=== PATIENT | female | born 2000 | race Caucasian/White ===

== ENCOUNTER → 2019-09-30 09:14 | Outpatient (CLI) | payer BC, SELFPAY ==
[2019-09-30 09:54] LABS: Influenza A - CEPHEID Flu A NEGATIVE (NEGATIVE); Influenza B - CEPHEID Flu B NEGATIVE (NEGATIVE)
== END ==
PROVIDERS: PCP Registered Nurse; Visit Provider Nurse Practitioner
DX: R68.89 Other general symptoms and signs (principal); J02.9 Acute pharyngitis, unspecified
CPT/HCPCS: 87070; 87147; 87502

== ENCOUNTER → 2019-12-04 11:46 | Outpatient (CLI) | payer BC, SELFPAY ==
--- NOTE | 2019-12-04 11:48 | DI.RAD.S_ITS ---
PROCEDURE: XR FOOT RT MIN 3V INDICATIONS: Right foot pain TECHNIQUE: 3 views of the foot were acquired. COMPARISON: [facility], CR, XR ANKLE RT MIN 3V, 12/04/2019, 12:07. FINDINGS: Bones: No fractures or dislocations. No suspicious bony lesions. Soft tissues: No tibiotalar joint effusion. Achilles tendon appears normal. Soft tissue swelling over the lateral malleolus. IMPRESSION: Soft tissue swelling over the lateral malleolus, no fracture found. Dictated by: Edward Griffin M.D. on 12/04/2019 at 12:40 Approved by: Edward Griffin M.D. on 12/04/2019 at 12:41
--- NOTE | 2019-12-04 11:48 | DI.RAD.S_ITS ---
PROCEDURE: XR ANKLE RT MIN 3V INDICATIONS: Right foot pain TECHNIQUE: 3 views of the ankle were acquired. COMPARISON: None. FINDINGS: Bones: No fractures or dislocations. Ankle mortise is normally aligned. No suspicious bony lesions. Soft tissues: No tibiotalar joint effusion. Achilles tendon appears normal. There is soft tissue swelling over the lateral malleolus. IMPRESSION: Soft tissue swelling over the lateral malleolus. No malalignment seen. Study extends cephalad into the middle third of the fibula and the fibular diaphysis through this area of imaging shows no sign of fracture or malalignment. Findings discussed with the physician caring for the patient. Dictated by: Edward Griffin M.D. on 12/04/2019 at 12:41 Approved by: Edward Griffin M.D. on 12/04/2019 at 12:43
== END ==
PROVIDERS: PCP Registered Nurse; Referring Provider Family Medicine; Visit Provider Family Medicine
DX: S99.921A Unspecified injury of right foot, initial encounter (principal); M79.671 Pain in right foot; M79.89 Other specified soft tissue disorders; X58.XXXA Exposure to other specified factors, initial encounter
CPT/HCPCS: 73610; 73630

== ENCOUNTER → 2019-12-18 10:01 | Outpatient (CLI) | payer BC, SELFPAY ==
--- NOTE | 2019-12-18 10:04 | DI.RAD.S_ITS ---
PROCEDURE: XR TIBIA FUBULA RT 2V INDICATIONS: Persistent localized pain mid shaft right fibula TECHNIQUE: 2 views of the tibia and fibula were acquired. COMPARISON: None. FINDINGS: Bones: No fractures or dislocations. No suspicious bony lesions. Soft tissues: No suspicious soft tissue calcifications or masses. IMPRESSION: No lesion found. Source of mid shaft tibial pain is not identified. Marrow space imaging could be obtained with MR scanning with contrast, if clinically warranted. Dictated by: Edward Griffin M.D. on 12/18/2019 at 11:25 Approved by: Edward Griffin M.D. on 12/18/2019 at 11:26
== END ==
PROVIDERS: PCP Registered Nurse; Referring Provider Family Medicine; Visit Provider Family Medicine
DX: M79.661 Pain in right lower leg (principal)
CPT/HCPCS: 73590

== ENCOUNTER → 2020-01-14 09:38 | Outpatient (CLI) | payer BC, SELFPAY ==
--- NOTE | 2020-01-14 09:41 | DI.MRI.S_ITS ---
PROCEDURE: MR ANKLE RT WO CON INDICATIONS: persistent lateral compartment right ankle pain TECHNIQUE: Noncontrast sagittal T1 spin echo and T2 fast spin echo with fat saturation, axial proton density fast spin echo and T2 fast spin echo with fat saturation, coronal T1 spin echo and T2 fast spin echo with fat saturation through the ankle/hindfoot. COMPARISON: None. FINDINGS: Image quality: Excellent. Bones and joints: Small to moderate amount of tibiotalar joint and subtalar joint effusion is seen. There is marrow edema involving medial malleolus, medial periphery of talus extending to talar dome and lateral periphery of distal tibia extending to tibial plafond. Marrow edema involving posterior lateral periphery of talus is also seen. No discrete fracture line is identified. Finding likely represent bony contusion in these areas. Mild edema is also noted along the periphery of distal lateral malleolus. Ankle soft tissue swelling and edema is also noted. Medial structures: The posterior tibialis, flexor digitorum longus, and flexor hallucis longus tendons are intact. The posterior tibial neurovascular bundle appears normal within the tarsal tunnel, without extrinsic mass effect. There is edema within superficial and deep portion of deltoid ligament suggestive of ligament sprain/low-grade intrasubstance partial thickness tear. Thickened with significant intrasubstance fluid signal suggestive of moderate grade sprain/partial thickness tear. The spring ligament components (superomedial calcaneonavicular, medioplantar oblique calcaneonavicular, and inferoplantar longitudinal ligaments) are intact. Lateral structures: The anterior talofibular, calcaneofibular, and posterior talofibular ligaments appear intact. More superiorly, the anterior and posterior tibiofibular ligaments appear intact, as is the intermalleolar ligament. The tibiofibular syndesmosis is normal in width at 2 mm or less. The peroneus longus and brevis tendons demonstrate normal location and morphology. Adjacent bony peroneal tubercle and retrotrochlear prominence are normal in size. The sinus tarsi demonstrates normal fatty signal, without edema, fibrosis, or cyst formation. Visualized sinus tarsi components (cervical ligament, interosseous talocalcaneal ligament, roots of the inferior extensor retinaculum) appear normal. The calcaneonavicular and calcaneocuboid components of the bifurcate ligament appear intact. The dorsal calcaneocuboid ligament appears intact. Anterior structures: The tibialis anterior, extensor hallucis longus, and extensor digitorum longus tendons appear intact. The dorsal talonavicular ligament appears intact. Posterior and plantar structures: Achilles tendon is intact. Medial and lateral bands of the plantar fascia are of normal thickness. No abductor digiti quinti muscle atrophy to suggest Wright neuropathy. IMPRESSION: 1. Moderate grade sprain/intrasubstance partial-thickness tear involving anterior and posterior talofibular ligaments and calcaneofibular ligament. Low to moderate grade sprain/intrasubstance partial-thickness tear involving deltoid ligament. 2. Ankle tendons are grossly intact. 3. Bony contusion involving medial malleolus, medial and lateral periphery of talar dome, lateral periphery of lateral malleolus as above. No fracture or dislocation. Small to moderate amount of joint effusion, no gross intra-articular loose body. Dictated by: Ra Sparks M.D. on 01/14/2020 at 16:11 Approved by: Ra Sparks M.D. on 01/14/2020 at 16:20
== END ==
PROVIDERS: PCP Family Medicine; Referring Provider Family Medicine; Visit Provider Family Medicine
DX: M25.571 Pain in right ankle and joints of right foot (principal); S93.491A Sprain of other ligament of right ankle, initial encounter; S93.421A Sprain of deltoid ligament of right ankle, initial encounter; S93.411A Sprain of calcaneofibular ligament of right ankle, initial encounter; M25.471 Effusion, right ankle
CPT/HCPCS: 73721

== ENCOUNTER 2020-07-23 23:12 | Observation (INO) | payer OTHER, SELFPAY ==
[2020-07-23 23:21] VITALS: BP 136/87; PULSE 109; RESP 26; TEMP 36.1; O2SAT 100; BMI 22.2
[2020-07-23 23:25] VITALS: PULSE 106; O2SAT 100
[2020-07-23 23:26] VITALS: BP 142/87; PULSE 104; O2SAT 100
[2020-07-23] MEDS: DEXTROSE 50 % IN WATER 25 GM/50 ML SYRINGE IV (23:27)
[2020-07-23 23:30] VITALS: PULSE 96; O2SAT 99
[2020-07-23 23:31] LABS: HCO3 VBG 20 mmol/L (23-28); Oxygen Saturation VBG 74 % (70-75); PCO2 VBG 34.1 mmHg (45-50); PO2 VBG 40 mmHg (35-45); Total CO2 VBG 21 mmol/L (24-29); pH VBG 7.38 (7.33-7.43)
[2020-07-23] MEDS: ONDANSETRON 4 MG/2 ML INJ IV (23:37)
--- NOTE | 2020-07-23 23:38 | ED.GENADULT ---
HPI - General Adult General Chief complaint: Diabetic Problem Stated complaint: Diabetic symptoms Time Seen by Provider: 07/23/20 23:21 Source: patient and family Mode of arrival: Wheelchair Limitations: no limitations History of Present Illness HPI narrative: Patient here with mother. Complains of nausea and vomiting with elevated blood sugar as well as low blood sugar. Started yesterday with nausea and blood glucose in the 600s. Unable to tolerate food. No changes in urination. Took her medicines as usual. No changes. However hypoglycemic on arrival. Is alert oriented. No altered mental status. No seizures. No recent illness otherwise no fever chills cough cold congestion no urinary complaints. No prior history of DKA or admission to the hospital for problems with her blood glucose. No prior Emergency Department visits for diabetes. Related Data Home Medications Medication Instructions Recorded Confirmed Humalog U-100 Insulin 0 unit SQ #3 ml 03/18/13 07/01/20 Lantus U-100 Insulin 0 unit SQ HS #10 ml 03/18/13 07/24/20 hydroxyzine pamoate 50 mg capsule 50 mg PO QID PRN 01/07/19 07/24/20 bupropion HCl 300 mg 24 hr tablet, 300 mg PO QAM 12/18/19 07/24/20 extended release lamotrigine 100 mg tablet 100 mg PO DAILY 12/18/19 07/24/20 prazosin 2 mg capsule 2 mg PO BEDTIME 12/18/19 07/24/20 sertraline 50 mg tablet 50 mg PO DAILY 12/18/19 07/24/20 cariprazine PO 07/01/20 07/01/20 clonidine HCl 0.2 mg tablet 0.2 mg PO BEDTIME 07/01/20 07/24/20 cariprazine [Vraylar] 1.5 mg 07/24/20 Previous Rx's Medication Instructions Recorded benzonatate 100 mg capsule 100 mg PO BID PRN #30 cap 06/19/20 Allergies Allergy/AdvReac Type Severity Reaction Status Date / Time No Known Drug Allergies Allergy Verified 07/23/20 23:24 Review of Systems Review of Systems Narrative: GENERAL: Denies chills, fatigue, malaise, fever, sweats. HEENT: Denies sinus pain, ear pain, sore throat, difficulty swallowing RESPIRATORY: Denies dyspnea, cough CARDIOVASCULAR: Denies chest pain, palpitations, edema, GASTROINTESTINAL: Complains of nausea, vomiting, denies abdominal pain, diarrhea, constipation, melena. : Denies dysuria, frequency, hematuria MUSCULOSKELETAL: denies muscle or bony pain SKIN: Denies rash, skin lesions NEUROLOGIC: Denies weakness, headache, numbness, change in speech, confusion PSYCHIATRIC: No SI or HI or hallucinations ROS Unobtainable: All systems reviewed & are unremarkable except as noted in HPI and below Patient History Medical History Acute bronchitis Contraceptive management Lower leg pain Postnasal drip Right ankle pain Second degree ankle sprain Social History household members: family Smoking Status: Never smoker alcohol intake: never substance use type: does not use and marijuana (1 dab pen per month (1g per month) ) Smoking Status: Never smoker Substance Use Type: marijuana Exam Narrative Exam Narrative: GENERAL: patient appears stated age. Well-nourished, well-developed patient, in no distress, not toxic not dyspneic HEAD: Normocephalic. EYES: Pupils equal round and reactive. No scleral icterus. No injection no discharge ENT: Mucous membranes moist. No drooling no tongue elevation no trismus no malocclusion NECK: Trachea midline. Non tender CARDIOVASCULAR: Regular rate and rhythm without murmurs, gallops, or rubs. RESPIRATORY: Clear to auscultation. Breath sounds equal bilaterally. No wheezes, rales, or rhonchi. GASTROINTESTINAL: Abdomen soft, non-tender, nondistended. EXTREMITIES: No gross deformities. BACK: Nontender without deformity or crepitance. No flank tenderness. NEURO: AOx4. SKIN: Warm and dry PSYCH: Not anxious, is cooperative Initial Vital Signs Initial Vital Signs: Vital Signs Temperature 96.9 F L 07/23/20 23:21 Pulse Rate 109 H 07/23/20 23:21 Respiratory Rate 26 H 07/23/20 23:21 Blood Pressure 136/87 07/23/20 23:21 Pulse Oximetry 100 07/23/20 23:21 Course Orders Ordered: ED Orders 07/23/20 23:20 Complete Blood Count AUTO DIFF Stat Comprehensive Metabolic Panel Stat Ketones (Beta-Hydroxybutyrate) Stat Lipase Stat Test Serum,Qual Stat 07/23/20 23:22 Venous Blood Gas Stat 07/23/20 23:47 COVID19 Stat Acetaminophen (Acetaminophen 325 Mg Tablet) 650 mg PO Q6HR PRN PRN Reason: Pain, Moderate (4-6) Bupropion HCl (Bupropion Xl 150 Mg Tab) 300 mg PO DAILY [facility] Dextrose (Dextrose 50 % In Water 25 Gm/50 Ml Syringe) 25 gm IV PRN PRN PRN Reason: Hypoglycemia Last Admin: 07/24/20 03:07 Dose: 25 gm Documented by: RANI Enoxaparin Sodium (Enoxaparin 40 Mg/0.4 Ml Syringe) 40 mg SUBCUT DAILY [facility] Dextrose/Sodium Chloride (Dextrose 5%-0.9% Ns) 1,000 mls @ 100 mls/hr IV CONT SHYANN Last Infusion: 07/24/20 01:25 Dose: 100 mls/hr Documented by: Admin: 07/24/20 01:07 Dose: 100 mls/hr Documented by: CECI Dextrose/Sodium Chloride (Dextrose 5%-0.9% Ns) 1,000 mls @ 84 mls/hr IV CONT SHYANN Last Admin: 07/24/20 02:43 Dose: 84 mls/hr Documented by: RANI Lamotrigine (Lamotrigine 100 Mg Tablet) 100 mg PO DAILY [facility] Naloxone HCl (Naloxone 0.4 Mg/Ml Vial) 0.2 mg IV Q2MIN PRN PRN Reason: Opiate Reversal Prazosin HCl (Prazosin 1 Mg Capsule) 2 mg PO BEDTIME [facility] Sertraline HCl (Sertraline 50 Mg Tablet) 50 mg PO DAILY [facility] Discontinued Medications Dextrose (Dextrose 50 % In Water 25 Gm/50 Ml Syringe) 25 gm IV NOW ONE Stop: 07/23/20 23:22 Last Admin: 07/23/20 23:27 Dose: 25 gm Documented by: CECI Dextrose (Dextrose 50 % In Water 25 Gm/50 Ml Syringe) 25 gm IV NOW ONE Stop: 07/24/20 00:30 Last Admin: 07/24/20 00:33 Dose: 25 gm Documented by: CECI Potassium Chloride 20 meq/ (Sodium Chloride) 260 mls @ 130 mls/hr IV NOW ONE Stop: 07/24/20 01:58 Last Infusion: 07/24/20 01:23 Dose: 130 mls/hr Documented by: SARAH Cosigned by: CECI Admin: 07/24/20 00:20 Dose: 130 mls/hr Documented by: CECI Cosigned by: SARAH Ondansetron HCl (Ondansetron 4 Mg/2 Ml Inj) 4 mg IV NOW ONE Stop: 07/23/20 23:33 Last Admin: 07/23/20 23:37 Dose: 4 mg Documented by: SARAH Reevaluation(s) Reevaluation #1: Patient still has hypoglycemia despite oral attempt as well as D50. What placed on glucose drip. Time: 00:42 Consultations Consultation #1: Spoke with hospitalist. Will admit Time: 00:42 Vital Signs Vital signs: Vital Signs - 8 hr 07/23/20 23:21 07/23/20 23:25 07/23/20 23:26 Temperature 96.9 F L Pulse Rate 109 H 106 H 104 H Respiratory Rate 26 H Blood Pressure 136/87 142/87 H Pulse Oximetry 100 100 100 07/23/20 23:30 07/24/20 00:00 07/24/20 00:05 Temperature Pulse Rate 96 H 88 97 H Respiratory Rate 21 Blood Pressure 127/75 Pulse Oximetry 99 99 100 07/24/20 00:30 Temperature Pulse Rate 122 H Respiratory Rate 23 Blood Pressure 131/81 Pulse Oximetry 99 Medical Decision Making Differential Diagnosis Differential Diagnosis: Hypoglycemia Lab Data Lab results reviewed: Yes I reviewed the patient's lab results. Result diagrams: 07/23/20 23:20 07/23/20 23:20 Labs: Lab Results 07/23/20 07/23/20 07/23/20 Range/Units 23:20 23:20 23:20 WBC 12.7 H (4.5-11.0) X10^3/uL RBC 5.07 (4.0-5.2) X10^6/uL Hgb 13.6 (12.0-16.0) g/dL Hct 41.8 (36-46) % MCV 82.5 (80-100) fL MCH 26.9 (26-34) PG MCHC 32.6 (30-36) % RDW 13.4 (11.6-14.8) % Plt Count 331 (150-400) X10^3/uL Neut % (Auto) 72.8 (50-75) % Lymph % (Auto) 20.8 L (25-40) % Cuming % (Auto) 4.5 (3-14) % Eos % (Auto) 1.3 L (2-4) % Baso % (Auto) 0.6 (0-2) % Neut # (Auto) 9200 H (6200-3421) /uL Lymph # (Auto) 2600 (5979-1419) /uL Cuming # (Auto) 600 (0-900) /uL Eos # (Auto) 200 (0-450) /uL Baso # (Auto) 100 (0-100) /uL VBG pH (7.33-7.43) VBG pCO2 (45-50) mmHg VBG pO2 (35-45) mmHg VBG HCO3 (23-28) mmol/L VBG Total CO2 (24-29) mmol/L VBG O2 Saturation (70-75) % VBG Base Excess (0-4) mmol/L Sodium 138 (137-145) mmol/L Potassium 2.3 L* (3.4-5.1) mmol/L Chloride 104 (98-107) mmol/L Carbon Dioxide 22 (22-32) mmol/L BUN 14 (7-17) mg/dL Creatinine 0.60 (0.52-1.04) mg/dL Estimated GFR > 60.0 (>60) mL/min BUN/Creatinine Ratio 23.3 H (6-22) Glucose 56 L (70-100) mg/dL Calcium 9.8 (8.4-10.2) mg/dL Total Bilirubin 0.3 (0.2-1.3) mg/dL AST 27 (14-36) IU/L ALT 25 (<35) IU/L Alkaline Phosphatase 81 (38-126) U/L Total Protein 7.9 (6.3-8.2) g/dL Albumin 4.6 (3.5-5.0) g/dL Globulin 3.3 (1.7-4.1) g/dL Albumin/Globulin Ratio 1.4 (1.0-2.8) Lipase 33 (23-300) U/L Serum , Qual Negative (Negative) Ketones 0.10 (<0.27) mmol/L COVID-19 PCR (Negative) 07/23/20 07/23/20 Range/Units 23:22 23:47 WBC (4.5-11.0) X10^3/uL RBC (4.0-5.2) X10^6/uL Hgb (12.0-16.0) g/dL Hct (36-46) % MCV (80-100) fL MCH (26-34) PG MCHC (30-36) % RDW (11.6-14.8) % Plt Count (150-400) X10^3/uL Neut % (Auto) (50-75) % Lymph % (Auto) (25-40) % Cuming % (Auto) (3-14) % Eos % (Auto) (2-4) % Baso % (Auto) (0-2) % Neut # (Auto) (4414-4963) /uL Lymph # (Auto) (2687-3681) /uL Cuming # (Auto) (0-900) /uL Eos # (Auto) (0-450) /uL Baso # (Auto) (0-100) /uL VBG pH 7.38 (7.33-7.43) VBG pCO2 34.1 L (45-50) mmHg VBG pO2 40 (35-45) mmHg VBG HCO3 20 L (23-28) mmol/L VBG Total CO2 21 L (24-29) mmol/L VBG O2 Saturation 74 (70-75) % VBG Base Excess -5.0 L (0-4) mmol/L Sodium (137-145) mmol/L Potassium (3.4-5.1) mmol/L Chloride (98-107) mmol/L Carbon Dioxide (22-32) mmol/L BUN (7-17) mg/dL Creatinine (0.52-1.04) mg/dL Estimated GFR (>60) mL/min BUN/Creatinine Ratio (6-22) Glucose (70-100) mg/dL Calcium (8.4-10.2) mg/dL Total Bilirubin (0.2-1.3) mg/dL AST (14-36) IU/L ALT (<35) IU/L Alkaline Phosphatase (38-126) U/L Total Protein (6.3-8.2) g/dL Albumin (3.5-5.0) g/dL Globulin (1.7-4.1) g/dL Albumin/Globulin Ratio (1.0-2.8) Lipase (23-300) U/L Serum , Qual (Negative) Ketones (<0.27) mmol/L COVID-19 PCR Negative (Negative) Point of Care Testing Glucose POC 126 Point of care testing: Point of Care Testing Glucose POC 126 MDM Narrative Medical decision making narrative: Appropriate for admission as maintaining hypoglycemia despite boluses dextrose Discharge Plan Departure Patient Disposition: Admitted as Observation Clinical Impression: Hypoglycemia Admit Date/Time: 07/24/20 00:56 Admit Provider: Kamini Molina
[2020-07-23 23:45] LABS: Add Manual Diff / Slide Review NO; Basophils Absolute Auto 100 /uL (0-100); Basophils Percent Auto 0.6 % (0-2); Eosinophils Absolute Auto 200 /uL (0-450); Eosinophils Percent Auto 1.3 % (2-4); Hematocrit 41.8 % (36-46); Hemoglobin 13.6 g/dL (12.0-16.0); Lymphocytes Absolute Auto 2600 /uL (1100-4500); Lymphocytes Percent Auto 20.8 % (25-40); Mean Corpuscular HGB Conc 32.6 % (30-36); Mean Corpuscular Hemoglobin 26.9 PG (26-34); Mean Corpuscular Volume 82.5 fL (80-100); Monocytes Absolute Auto 600 /uL (0-900); Monocytes Percent Auto 4.5 % (3-14); Neutrophils Absolute Auto 9200 /uL (1500-7000); Neutrophils Percent Auto 72.8 % (50-75); Platelet Count 331 X10^3/uL (150-400); Red Blood Cell Count 5.07 X10^6/uL (4.0-5.2); Red Cell Distribution Width 13.4 % (11.6-14.8); White Blood Cell Count 12.7 X10^3/uL (4.5-11.0)
[2020-07-23 23:50] LABS: Alanine Aminotransferase 25 IU/L (<35); Albumin 4.6 g/dL (3.5-5.0); Albumin Globulin Ratio 1.4 (1.0-2.8); Alkaline Phosphatase 81 U/L (38-126); Aspartate Aminotransferase 27 IU/L (14-36); BUN Creatinine Ratio 23.3 (6-22); Bilirubin Total 0.3 mg/dL (0.2-1.3); Blood Urea Nitrogen 14 mg/dL (7-17); Calcium 9.8 mg/dL (8.4-10.2); Carbon Dioxide 22 mmol/L (22-32); Chloride 104 mmol/L (98-107); Estimated Glomerular Filt Rate > 60.0 mL/min (>60); Globulin 3.3 g/dL (1.7-4.1); Glucose 56 mg/dL (70-100); HEMOLYSIS < 15 (0-50); Lipase 33 U/L (23-300); Sodium 138 mmol/L (137-145); Total Protein 7.9 g/dL (6.3-8.2)
[2020-07-23 23:56] LABS: Potassium 2.3 mmol/L (3.4-5.1)
[2020-07-24] VITALS (27 sets, daily range): BP systolic 96–146; BP diastolic 53–81; PULSE 68–122; RESP 16–23; TEMP 36.2–37.1; O2SAT 98–100; BMI 21.9
[2020-07-24 00:05] LABS: Pregnancy Test Serum,Qual Negative (Negative)
[2020-07-24 00:06] LABS: COVID19 -Nasal RAPID Negative (Negative)
[2020-07-24] MEDS: POTASSIUM CHLORIDE 20 MEQ in SODIUM CHLORIDE 0.9% 250 ML 130 ML IV (00:20)
[2020-07-24] MEDS: DEXTROSE 50 % IN WATER 25 GM/50 ML SYRINGE IV ×3 (00:33→05:07)
--- NOTE | 2020-07-24 00:33 | PC.NURSE ---
Patient reports personal glucose check of 45, checked on our glucometer 32. Verbal order from Dr Hutchinson for amp 25gm of dextrose. Patient diaphoretic and some nausea. Attempting to eat peanut butter and cracker with small sips of juice.
[2020-07-24] MEDS: DEXTROSE 5%-0.9% NS 1,000 ML 100 ML IV (01:07)
[2020-07-24] MEDS: DEXTROSE 5%-0.9% NS 1,000 ML 84 ML IV (02:43)
[2020-07-24] MEDS: hydrOXYzine pamoate 25 MG CAPSULE 50 MG PO (03:47)
[2020-07-24] MEDS: cloNIDine 0.1 MG TABLET 0.2 MG PO (03:47)
[2020-07-24] MEDS: lamoTRIgine 100 MG TABLET PO (03:48)
[2020-07-24] MEDS: SERTRALINE 50 MG TABLET PO (03:48)
--- NOTE | 2020-07-24 04:01 | PC.NURSE ---
0200 -late entry - Pt HR frequently upto 130-150s with short SVT runs again. Not resolving with vagal maneuver. Pt reports feeling palpitations. No complaints of chest pain. Paged Dr Rubin. TO to give another 25mg PO metoprolol. Pt now resting with HR running in the mid 50s. WCTM
--- NOTE | 2020-07-24 05:14 | PC.NURSE ---
Notified Jesse EASON of patient low blood sugar. Giving D50 now as ordered. TO to switch IV fluids to d10ns
--- NOTE | 2020-07-24 05:17 | PC.NURSE ---
Addendum entered by Natividad Moralez R.N. 07/24/20 07:02: d10w turned off per YUMI Anderson Original Note: Notified Jesse EASON of patient low blood sugar. Giving D50 now as ordered. TO to switch IV fluids to d10w. Pt reports shakiness and lightheadedness
[2020-07-24] MEDS: DEXTROSE 10 % IN WATER 1,000 ML 84 ML IV (05:19)
--- NOTE | 2020-07-24 06:17 | PM.HP.1 ---
History of Present Illness History of Present Illness Date Patient Seen: 07/24/20 Time Patient Seen: 01:38 Chief complaint: Diabetic symptoms Narrative: Patient presented to the ER with her mother complaining of nausea and vomiting with elevated blood sugar as well as low blood sugar. Yesterday the patient reports that she had nausea with blood glucose in the 600s and was unable to tolerate food. Patient reports that she has been cycling through high and low blood sugars some over 600 and as low as the 70s for the last 2 weeks, she often experiences racing heart and shaking hands and feels weak and and vomiting a couple times a week and then last 3 days she was unable to keep fluids down vomiting constantly. Patient denies recent illness, injury or changes in urination. She reports that she took her medicines as usual today, however she was hypoglycemic on arrival, though alert and oriented without an altered mental status. Patient denies seizures fever chills cough cold congestion or urinary complaints. Patient was diagnosed a type 1 insulin-dependent diabetic 7 years ago no prior history of DKA or admission to the hospital for problems with her blood glucose or other diabetes related issues. Patient has a history of generalized anxiety with panic attacks, depression and history of attempted suicide. Patient takes prazosin, Benzonate, bupropion,cariprazine, Lamictal, sertraline, clonidine, hydroxyzine, Lantus and Humalog. WBC 12.7 K 2.3 glucose 56, ketones negative, IV BGs: PCO2 31.4 bicarb 20, CO2 21, base excess -5.0. Patient received dextrose 25 mg x 2 in the emergency room and a 20 mEq K, 4 mg of Zofran blood sugar remained in the 50s, patient was then placed on a D5 normal saline drip, was stable but admitted for severe hypoglycemia. Patient History Medical History Acute bronchitis Contraceptive management Lower leg pain Postnasal drip Right ankle pain Second degree ankle sprain Family & Social History Family History (Updated 07/24/20 @ 07:05 by JHONATHAN Peña) Father Diabetes mellitus Unknown Diabetes mellitus Social History: household members family with mother & step father Prior Living Arrangements House Safety & Behavioral: Feels Safe in Current Yes Environment Been Physically Hurt or No Threatened By a Person Suicidal Ideation Description None Suicide Plan Description No Plan Tobacco & Substance use: Smoking Status Never smoker alcohol intake never Substance Use Type marijuana Meds Home Medications and Allergies Home Medications Medication Instructions Recorded Confirmed Type Humalog U-100 Insulin 0 unit SQ TIDWMEAL #3 ml 03/18/13 07/24/20 History Lantus U-100 Insulin 0 unit SQ HS #10 ml 03/18/13 07/24/20 History hydroxyzine pamoate 50 mg capsule 50 mg PO QID PRN 01/07/19 07/24/20 History bupropion HCl 300 mg 24 hr tablet, 300 mg PO QAM 12/18/19 07/24/20 History extended release lamotrigine 100 mg tablet 100 mg PO DAILY 12/18/19 07/24/20 History prazosin 2 mg capsule 2 mg PO BEDTIME 12/18/19 07/24/20 History sertraline 50 mg tablet 50 mg PO DAILY 12/18/19 07/24/20 History benzonatate 100 mg capsule 100 mg PO BID PRN #30 cap 06/19/20 07/24/20 Rx clonidine HCl 0.2 mg tablet 0.2 mg PO BEDTIME 07/01/20 07/24/20 History cariprazine [Vraylar] 1.5 mg PO DAILY 07/24/20 07/24/20 History Allergies Allergy/AdvReac Type Severity Reaction Status Date / Time No Known Drug Allergies Allergy Verified 07/23/20 23:24 Review of Systems Review of Systems ROS: Yes All systems reviewed with the patient and are negative except as otherwise documented Constitutional Constitutional: Reports system reviewed and no additional complaints, except as documented and Reports fatigue Eyes Eyes: Reports system reviewed and no additional complaints, except as documented ENT Ears, Nose, Mouth, and Throat: Yes system reviewed and no additional complaints, except as documented Cardiovascular Cardiovascular: Reports system reviewed and no additional complaints, except as documented Respiratory Respiratory: Reports system reviewed and no additional complaints, except as documented Gastrointestinal Gastrointestinal: Reports system reviewed and no additional complaints, except as documented Genitourinary Genitourinary: Reports system reviewed and no additional complaints, except as documented Musculoskeletal Musculoskeletal: Reports system reviewed and no additional complaints, except as documented Integumentary/Breasts Skin/Breast: Reports system reviewed and no additional complaints, except as documented Neurologic Neurologic: Reports system reviewed and no additional complaints, except as documented Psychiatric Psychiatric: Reports system reviewed and no additional complaints, except as documented Endocrine Endocrine: Reports system reviewed and no additional complaints, except as documented and Reports fatigue Hematologic/Lymphatic Hematologic/Lymphatic: Reports system reviewed and no additional complaints, except as documented Allergic/Immunologic Allergic/Immunologic: Reports system reviewed and no additional complaints, except as documented Exam Vital Signs (past 8 hours): - 07/23/20 23:21 07/23/20 23:25 07/23/20 23:26 Temperature 96.9 F L Pulse Rate 109 H 106 H 104 H Respiratory Rate 26 H Blood Pressure 136/87 142/87 H Pulse Oximetry 100 100 100 07/23/20 23:30 07/24/20 00:00 07/24/20 00:05 Temperature Pulse Rate 96 H 88 97 H Respiratory Rate 21 Blood Pressure 127/75 Pulse Oximetry 99 99 100 07/24/20 00:30 07/24/20 01:00 07/24/20 01:21 Temperature Pulse Rate 122 H 86 102 H Respiratory Rate 23 16 22 Blood Pressure 131/81 129/73 Pulse Oximetry 99 99 99 07/24/20 01:30 07/24/20 02:35 07/24/20 02:39 Temperature 98.0 F Pulse Rate 107 H 104 H Respiratory Rate 16 Blood Pressure 131/80 146/81 H Pulse Oximetry 100 100 07/24/20 03:00 07/24/20 03:30 07/24/20 03:47 Temperature Pulse Rate 101 H 92 H 102 H Respiratory Rate Blood Pressure 125/73 125/73 Pulse Oximetry 100 99 07/24/20 04:00 07/24/20 04:30 07/24/20 05:00 Temperature Pulse Rate 87 80 78 Respiratory Rate Blood Pressure 117/71 117/80 Pulse Oximetry 100 98 98 07/24/20 05:30 07/24/20 06:00 Temperature Pulse Rate 75 80 Respiratory Rate Blood Pressure 97/53 L Pulse Oximetry 100 100 Oxygen Delivery Method Room Air Oxygen Flow Rate 0 Narrative Exam Narrative: GENERAL: patient appears stated age. Well-nourished, well-developed patient, in no distress, not toxic not dyspneic HEAD: Normocephalic. EYES: Pupils equal round and reactive. No scleral icterus. No injection no discharge ENT: Mucous membranes moist. No drooling no tongue elevation no trismus no malocclusion NECK: Trachea midline. Non tender CARDIOVASCULAR: Regular rate and rhythm without murmurs, gallops, or rubs. RESPIRATORY: Clear to auscultation. Breath sounds equal bilaterally. No wheezes, rales, or rhonchi. GASTROINTESTINAL: Abdomen soft, non-tender, nondistended. EXTREMITIES: No gross deformities. BACK: Nontender without deformity or crepitance. No flank tenderness. NEURO: AOx4. SKIN: Warm and dry PSYCH: Not anxious, is cooperative Objective Labs Result Diagrams: 07/23/20 23:20 07/23/20 23:20 Labs: Laboratory Results - last 24 hr 07/23/20 07/23/20 07/23/20 23:20 23:20 23:20 WBC 12.7 H RBC 5.07 Hgb 13.6 Hct 41.8 MCV 82.5 MCH 26.9 MCHC 32.6 RDW 13.4 Plt Count 331 Neut % (Auto) 72.8 Lymph % (Auto) 20.8 L [place] % (Auto) 4.5 Eos % (Auto) 1.3 L Baso % (Auto) 0.6 Neut # (Auto) 9200 H Lymph # (Auto) 2600 [place] # (Auto) 600 Eos # (Auto) 200 Baso # (Auto) 100 VBG pH VBG pCO2 VBG pO2 VBG HCO3 VBG Total CO2 VBG O2 Saturation VBG Base Excess Sodium 138 Potassium 2.3 L* Chloride 104 Carbon Dioxide 22 BUN 14 Creatinine 0.60 Estimated GFR > 60.0 BUN/Creatinine Ratio 23.3 H Glucose 56 L Calcium 9.8 Total Bilirubin 0.3 AST 27 ALT 25 Alkaline Phosphatase 81 Total Protein 7.9 Albumin 4.6 Globulin 3.3 Albumin/Globulin Ratio 1.4 Lipase 33 Serum , Qual Negative Nasal Screen MRSA (PCR) Ketones 0.10 COVID-19 PCR 07/23/20 07/23/20 07/24/20 23:22 23:47 02:30 WBC RBC Hgb Hct MCV MCH MCHC RDW Plt Count Neut % (Auto) Lymph % (Auto) [place] % (Auto) Eos % (Auto) Baso % (Auto) Neut # (Auto) Lymph # (Auto) [place] # (Auto) Eos # (Auto) Baso # (Auto) VBG pH 7.38 VBG pCO2 34.1 L VBG pO2 40 VBG HCO3 20 L VBG Total CO2 21 L VBG O2 Saturation 74 VBG Base Excess -5.0 L Sodium Potassium Chloride Carbon Dioxide BUN Creatinine Estimated GFR BUN/Creatinine Ratio Glucose Calcium Total Bilirubin AST ALT Alkaline Phosphatase Total Protein Albumin Globulin Albumin/Globulin Ratio Lipase Serum , Qual Nasal Screen MRSA (PCR) Negative for mrsa Ketones COVID-19 PCR Negative Assessment & Plan Assessment and plan (1) History of attempted suicide: Problem details: -managed by [facility] Endocrine Status: Chronic (2) Depression: Problem details: managed by [facility] Endocrine Status: Chronic (3) Generalized anxiety disorder with panic attacks: Problem details: managed by [facility] Endocrine Status: Chronic Assessment & Plan narrative: Patient is a 19-year-old female with insulin-dependent type 1 diabetes who was admitted to the hospital with severe hypoglycemia and hypokalemia who despite several interventions of dextrose in the emergency room was unable to resolve severe hypoglycemia, and was admitted for acute ICU care and management on a dextrose drip. Patient's diabetes immune compromise putting her at higher risk for infection and life-threatening complications. This requires immediate inpatient medical management. 1. Severe hypoglycemia, acute, unrelenting with ER intervention secondary to type 1 insulin-dependent diabetes, present on admission -WBC 12.7, potassium 2.3, glucose 56, post 2 infusions of dextrose 25 mg. Patient also received 20 mEq of potassium, and 4 mg of IV Zofran. Labs ordered CBC CMP ketones lipase hCG and VBG, MRSA PCR -VBGs: PCO2 31.4 bicarb 20, CO2 21, base excess -5.0. -patient placed on telemedicine, in the ICU, bs, neuro and vital sign check Q hour. -patient placed on dextrose 5%-0.9% normal saline 100 cc/hour -patient placed on normal diet, I&O Q shift, daily weight -patients home Lantus and Humalog held at this time 2. Generalized anxiety and depression with panic attacks, acute on chronic, present on admission -managed by a [facility] Endocrine Department -monitor patient for suicidal ideation -Continue patient's home the bupropion, Lamictal, clonidine, hydroxyzine,cariprazine, and sertraline Code status: Full code Decision maker: COVID PCR: Negative VTE prophylaxis: Enoxaparin 40 mg Quality VTE Deep Vein Thrombosis/Pulmonary Embolism Present on Admission: No
[2020-07-24] MEDS: POTASSIUM CHLORIDE 40 MEQ in SODIUM CHLORIDE 0.9% 500 ML 130 ML IV (09:00)
[2020-07-24] MEDS: INSULIN ASPART 100 UNIT/ML INSULN PEN SUBCUT ×4 (09:00→12:12)
[2020-07-24] MEDS: buPROPion XL 150 MG TAB 300 MG PO (09:01)
[2020-07-24 09:19] LABS: Add Manual Diff / Slide Review NO; Basophils Absolute Auto 100 /uL (0-100); Basophils Percent Auto 0.9 % (0-2); Eosinophils Absolute Auto 100 /uL (0-450); Hematocrit 39.8 % (36-46); Hemoglobin 13.1 g/dL (12.0-16.0); Lymphocytes Absolute Auto 1900 /uL (1100-4500); Lymphocytes Percent Auto 28.6 % (25-40); Mean Corpuscular HGB Conc 32.9 % (30-36); Mean Corpuscular Hemoglobin 27.2 PG (26-34); Mean Corpuscular Volume 82.7 fL (80-100); Monocytes Absolute Auto 200 /uL (0-900); Monocytes Percent Auto 3.7 % (3-14); Neutrophils Absolute Auto 4300 /uL (1500-7000); Neutrophils Percent Auto 64.8 % (50-75); Platelet Count 255 X10^3/uL (150-400); Red Blood Cell Count 4.82 X10^6/uL (4.0-5.2); Red Cell Distribution Width 13.4 % (11.6-14.8); White Blood Cell Count 6.6 X10^3/uL (4.5-11.0)
[2020-07-24 09:30] LABS: Alanine Aminotransferase 22 IU/L (<35); Albumin 3.8 g/dL (3.5-5.0); Albumin Globulin Ratio 1.4 (1.0-2.8); Alkaline Phosphatase 81 U/L (38-126); Aspartate Aminotransferase 30 IU/L (14-36); BUN Creatinine Ratio 17.3 (6-22); Bilirubin Total 0.4 mg/dL (0.2-1.3); Bilirubin Unconjugated 0.3 mg/dL (0.0-1.1); Blood Urea Nitrogen 9 mg/dL (7-17); Calcium 8.6 mg/dL (8.4-10.2); Carbon Dioxide 25 mmol/L (22-32); Chloride 103 mmol/L (98-107); Estimated Glomerular Filt Rate > 60.0 mL/min (>60); Globulin 2.8 g/dL (1.7-4.1); Glucose 268 mg/dL (70-100); HEMOLYSIS < 15 (0-50); Magnesium 1.9 mg/dL (1.6-2.3); Potassium 3.8 mmol/L (3.4-5.1); Sodium 133 mmol/L (137-145); Total Protein 6.6 g/dL (6.3-8.2)
--- NOTE | 2020-07-24 10:49 | PC.NURSE ---
Addendum entered by Guilherme Pineda R.N. 07/24/20 15:16: During d/c teaching pt reports BG 307 during self check. She is requesting direction regarding managing this BG at home. Called to Dr. Browne for clarification per pt request. He states that pt should stay hydrated, not eat until dinner, re check BG, cover with short acting and continue lantus per usual routine. Dr. Browne states that this is ok as long as pt is not nauseous or vomiting. Provided these instruction to pt and mom at bedside. Pt now stating she is nauseous. Called and reported symptoms to Dr. Browne. Pt's IV was removed prior to dc teaching. Orders received for PO zofran and instructed to monitor, if improved pt may dc home per order. Original Note: Pt tolerating diabetic diet. No n/v. BG stabilized and now more toward hyperglycemic. Ate breakfast well. Unable to tolerate IV K+ rider due to burning/pain (IV flushes well with good blood return, no erythema). Repeat labs were done prior to starting infusion. Reported K+ 3.8 and pt unable to tolerate infusion to Dr. Browne. Dr. Browne states ok to stop infusion. No add'l orders at this time.
--- NOTE | 2020-07-24 14:31 | P.DS_ITS ---
History of Present Illness History of Present Illness Date Patient Seen: 07/24/20 Time Patient Seen: 14:31 Chief complaint: Diabetic symptoms Narrative: As per SUSAN Peña: Patient presented to the ER with her mother complaining of nausea and vomiting with elevated blood sugar as well as low blood sugar. Yesterday the patient reports that she had nausea with blood glucose in the 600s and was unable to tolerate food. Patient reports that she has been cycling through high and low blood sugars some over 600 and as low as the 70s for the last 2 weeks, she often experiences racing heart and shaking hands and feels weak and and vomiting a couple times a week and then last 3 days she was unable to keep fluids down vomiting constantly. Patient denies recent illness, injury or changes in urination. She reports that she took her medicines as usual today, however she was hypoglycemic on arrival, though alert and oriented without an altered mental status. Patient denies seizures fever chills cough cold congestion or urinary complaints. Patient was diagnosed a type 1 insulin-dependent diabetic 7 years ago no prior history of DKA or admission to the hospital for problems with her blood glucose or other diabetes related issues. Patient has a history of generalized anxiety with panic attacks, depression and history of attempted suicide. Patient takes prazosin, Benzonate, bupropion,cariprazine, Lamictal, sertraline, clonidine, hydroxyzine, Lantus and Humalog. WBC 12.7 K 2.3 glucose 56, ketones negative, IV BGs: PCO2 31.4 bicarb 20, CO2 21, base excess -5.0. Patient received dextrose 25 mg x 2 in the emergency room and a 20 mEq K, 4 mg of Zofran blood sugar remained in the 50s, patient was then placed on a D5 normal saline drip, was stable but admitted for severe hypoglycemia. Discharge Providers Provider Date of admission: 07/24/20 00:56 Discharge Date: 07/24/20 Primary care physician: Moiz Cardenas DO Discharge provider: Tavon Browne DO Summary Hospital Course Discharge Diagnosis: 1. Severe hypoglycemia, acute, secondary to type 1 insulin- dependent diabetes, present on admission 2. Generalized anxiety and depression with panic attacks, acute on chronic, present on admission 3. Hypokalemia, acute, present on admission, resolved. Hospital Course: Patient is a 19-year-old female with insulin-dependent type 1 diabetes who was admitted to the hospital with severe hypoglycemia and hypokalemia who despite several interventions of dextrose in the emergency room was unable to resolve severe hypoglycemia, and was admitted for acute ICU care and management on a dextrose drip. She initially had nausea and vomiting and hyperglycemia at home. She was Attempting to lower her blood glucose at home with 10 unit increments of Humalog every few hours. She did this ultimately 4 times for a total of 40 units. Her glucose did come down but then she became severely hypoglycemic, requiring the above interventions. By the following morning her glucoses were improving, and she was able to tolerate lunch without any issue. She was advised to resume her Lantus dosing this evening and avoid further stacking to prevent hypoglycemia. I do recommend that she follows up with her double end tenoner operator for further therapy adjustments. She intermittently uses a CGM, and I further recommended that she pursue possible insulin pump t herapy. She denied any suicidal ideations. No infectious etiologies were expected, leukocytosis improved on admission labs and was likely reactive to hypoglycemia. Hypokalemia improved with small amount of repletion and was decreased due to insuln. Exam Vital Signs (past 8 hours): - 07/24/20 06:55 07/24/20 07:00 07/24/20 07:45 Temperature Pulse Rate 82 97 H 70 Respiratory Rate Blood Pressure Pulse Oximetry 99 100 99 07/24/20 08:00 07/24/20 08:01 07/24/20 08:50 Temperature 97.6 F Pulse Rate 70 69 85 Respiratory Rate 16 Blood Pressure 107/63 107/63 Pulse Oximetry 98 99 99 07/24/20 09:00 07/24/20 09:50 07/24/20 10:00 Temperature Pulse Rate 93 H 71 68 Respiratory Rate Blood Pressure 96/78 106/58 L Pulse Oximetry 99 99 100 07/24/20 12:24 Temperature 98.7 F Pulse Rate 86 Respiratory Rate 18 Blood Pressure 113/69 Pulse Oximetry 100 Oxygen Delivery Method Room Air Oxygen Flow Rate 0 Narrative Exam Narrative: GENERAL APPEARANCE: Well developed, well nourished, in no acute distress. SKIN: Inspection of the skin reveals no rashes, ulcerations or petechiae. HEENT: Normocephalic atraumatic, extraocular muscles are intact, oropharynx is clear and mucous membranes are moist, neck is supple without adenopathy NECK: Supple and symmetric. There was no thyroid enlargement, and no tenderness, or masses were felt. CHEST: Normal AP diameter and normal contour without any kyphoscoliosis. LUNGS: Auscultation of the lungs revealed no wheezes, rhonchi, or rales. CARDIOVASCULAR: There was a regular rate and rhythm without any murmurs, gallops, rubs. Peripheral pulses were 2+ and symmetric. ABDOMEN: Soft and nontender with normal bowel sounds. No ascites was noted. MUSCULOSKELETAL: There was no tenderness or effusions noted. Muscle strength and tone were normal. EXTREMITIES: No cyanosis, clubbing or edema. NEUROLOGIC: Alert and oriented x 3. Normal affect. Gait was normal. Strength is +5/5 in the Upper Extremities and Lower Extremities Bilaterally. Sensation to touch was normal. Objective Labs Result Diagrams: 07/24/20 09:10 07/24/20 09:10 Labs: Laboratory Results - last 24 hr 07/23/20 07/23/20 07/23/20 23:20 23:20 23:20 WBC 12.7 H RBC 5.07 Hgb 13.6 Hct 41.8 MCV 82.5 MCH 26.9 MCHC 32.6 RDW 13.4 Plt Count 331 Neut % (Auto) 72.8 Lymph % (Auto) 20.8 L [place] % (Auto) 4.5 Eos % (Auto) 1.3 L Baso % (Auto) 0.6 Neut # (Auto) 9200 H Lymph # (Auto) 2600 [place] # (Auto) 600 Eos # (Auto) 200 Baso # (Auto) 100 VBG pH VBG pCO2 VBG pO2 VBG HCO3 VBG Total CO2 VBG O2 Saturation VBG Base Excess Sodium 138 Potassium 2.3 L* Chloride 104 Carbon Dioxide 22 BUN 14 Creatinine 0.60 Estimated GFR > 60.0 BUN/Creatinine Ratio 23.3 H Glucose 56 L Calcium 9.8 Magnesium Total Bilirubin 0.3 Conjugated Bilirubin Unconjugated Bilirubin AST 27 ALT 25 Alkaline Phosphatase 81 Total Protein 7.9 Albumin 4.6 Globulin 3.3 Albumin/Globulin Ratio 1.4 Lipase 33 Serum , Qual Negative Nasal Screen MRSA (PCR) Ketones 0.10 COVID-19 PCR 07/23/20 07/23/20 07/24/20 23:22 23:47 02:30 WBC RBC Hgb Hct MCV MCH MCHC RDW Plt Count Neut % (Auto) Lymph % (Auto) [place] % (Auto) Eos % (Auto) Baso % (Auto) Neut # (Auto) Lymph # (Auto) [place] # (Auto) Eos # (Auto) Baso # (Auto) VBG pH 7.38 VBG pCO2 34.1 L VBG pO2 40 VBG HCO3 20 L VBG Total CO2 21 L VBG O2 Saturation 74 VBG Base Excess -5.0 L Sodium Potassium Chloride Carbon Dioxide BUN Creatinine Estimated GFR BUN/Creatinine Ratio Glucose Calcium Magnesium Total Bilirubin Conjugated Bilirubin Unconjugated Bilirubin AST ALT Alkaline Phosphatase Total Protein Albumin Globulin Albumin/Globulin Ratio Lipase Serum , Qual Nasal Screen MRSA (PCR) Negative for mrsa Ketones COVID-19 PCR Negative 07/24/20 07/24/20 09:10 09:10 WBC 6.6 RBC 4.82 Hgb 13.1 Hct 39.8 MCV 82.7 MCH 27.2 MCHC 32.9 RDW 13.4 Plt Count 255 Neut % (Auto) 64.8 Lymph % (Auto) 28.6 [place] % (Auto) 3.7 Eos % (Auto) 2.0 Baso % (Auto) 0.9 Neut # (Auto) 4300 Lymph # (Auto) 1900 [place] # (Auto) 200 Eos # (Auto) 100 Baso # (Auto) 100 VBG pH VBG pCO2 VBG pO2 VBG HCO3 VBG Total CO2 VBG O2 Saturation VBG Base Excess Sodium 133 L Potassium 3.8 D Chloride 103 Carbon Dioxide 25 BUN 9 Creatinine 0.52 Estimated GFR > 60.0 BUN/Creatinine Ratio 17.3 Glucose 268 H D Calcium 8.6 Magnesium 1.9 Total Bilirubin 0.4 Conjugated Bilirubin 0.0 Unconjugated Bilirubin 0.3 AST 30 ALT 22 Alkaline Phosphatase 81 Total Protein 6.6 Albumin 3.8 Globulin 2.8 Albumin/Globulin Ratio 1.4 Lipase Serum , Qual Nasal Screen MRSA (PCR) Ketones COVID-19 PCR [facility] Medical History Acute bronchitis Contraceptive management Lower leg pain Postnasal drip Right ankle pain Second degree ankle sprain Family History (Updated 07/24/20 @ 07:05 by JHONATHAN Peña) Father Diabetes mellitus Unknown Diabetes mellitus Social History household members: family Smoking Status: Never smoker alcohol intake: never substance use type: does not use and marijuana (1 dab pen per month (1g per month) ) Discharge Plan Discharge Plan Patient Disposition: Home Provider Discharge Comment: You were admitted to the hospital with a low blood sugar after an effect called stacking. You might need to make small adjustments in your insulin with your double end tenoner operator. At this time no recommendations are needed, only to try and space out corrective boluses to every 5-6 hours or with meals. Discharge orders & Medications Prescriptions: Continued Lantus U-100 Insulin 100 UNIT/1 ML solution 27 unit SQ HS Qty: 10 RF: 0 Humalog U-100 Insulin 100 UNIT/1 ML cartridge 0 unit SQ TIDWMEAL Qty: 3 RF: 0 benzonatate [Tessalon Perles] 100 mg capsule 100 mg PO BID PRN (Reason: cough) Qty: 30 RF: 1 lamotrigine 100 mg tablet 100 mg PO DAILY RF: 0 sertraline 50 mg tablet 50 mg PO DAILY RF: 0 prazosin 2 mg capsule 2 mg PO BEDTIME RF: 0 bupropion HCl 300 mg tablet extended release 24 hr 300 mg PO QAM RF: 0 hydroxyzine pamoate [Vistaril] 50 mg capsule 50 mg PO QID PRN (Reason: Anxiety) RF: 0 clonidine HCl 0.2 mg tablet 0.2 mg PO BEDTIME RF: 0 Vraylar 1.5 mg capsule 1.5 mg PO DAILY RF: 0 Follow up/Referrals: Moiz Cardenas, [Primary Care Provider] - Diet/Activity/Treatments Diet: Diet as Tolerated and Carb-consistent/Diabetic Activity: As tolerated Visit Report/Discharge Packet Instructions: DI for Hypoglycemia Discharge Data Primary Care Provider: Moiz Cardenas Attending Provider: Kamini Molina VTE Deep Vein Thrombosis/Pulmonary Embolism Present on Admission: No
[2020-07-24] MEDS: ONDANSETRON 4 MG ODT SL (15:24)
--- NOTE | 2020-07-24 16:07 | CM.DANOTE ---
Discharge Planning/Care Management DCP: assessment: case received, EMR reviewed and d/c to home order noted. D/C now is pending as pt is experiencing nausea and pt will be ok to go home later if this resolves with oral medication. Checked in with pt and her mother who confirm they understand the above plan. Pt is a 19 year old female with type I diabetes. Admitted just after midnight to care of hospitalist team PCP: Moiz Cardenas Pt also follows with an endrocrinologist at [facility] Payer: [facility] P: home when stable for same, perhaps tonight. DCP team will follow up in the morning if pt is still here. CM Discharge Assessment Start: 07/24/20 16:06 Freq: Status: Active Protocol: Document 07/24/20 16:06 ITV (Rec: 07/24/20 16:07 ITV [id number]) Discharge Planning Assessment Advance Directives? No History Provided By Patient,Medical Record Prior Living Arrangements House Household Members family Independent with ADL's Yes Is patient alert and oriented? Yes
--- NOTE | 2020-07-24 16:12 | PC.NURSE ---
Discharge Note: Pt checked on and given SL zofran. Pt continues to recheck her BG, BG is above 300. Pt reports that her nausea is improved and that she feels confident that she can manage her hyperglycemia and nausea at home. Dr. Browne notifed and permission given for pt to discharge home. Pt instructed to take her long-acting insulin early, per Dr. Browne's recommendation. Pt given discharge teaching on medications, diet, monitoring for signs and symptoms of developing infection and management of hypoglycemia and timing of insulin administration to avoid hypoglycemia. Pt and pt's mother indicated understanding of teaching verbally, and indicated confidence in managing pt's current symptoms at home. Pt walked to ER entrance with SURGERY AIDE and discharged home in private vehicle without incident.
== END 2020-07-24 16:05 | disposition home or self-care (01) ==
LOC: ED 07-24 00:43 → AC 07-24 00:57 → ICU 07-24 02:11
PROVIDERS: Internal Medicine; Admitting Provider Nurse Practitioner Family; Emergency Provider Emergency Medicine; PCP Family Medicine; Referring Provider Emergency Medicine; Visit Provider Nurse Practitioner Family
DX: E10.649 Type 1 diabetes mellitus with hypoglycemia without coma (principal); R11.2 Nausea with vomiting, unspecified; Z79.4 Long term (current) use of insulin; Z91.5 Personal history of self-harm; F32.9 Major depressive disorder, single episode, unspecified; F41.1 Generalized anxiety disorder; F41.0 Panic disorder [episodic paroxysmal anxiety]; Z20.828 Contact with and (suspected) exposure to other viral communicable diseases
CPT/HCPCS: 36415; 80048; 80053; 80076; 82009; 82805; 82962; 83690; 83735; 84703; 85025; 87635; 87797; 96361; 96372; 96374; 99283; 99284; G0378; J2405; J3480

== ENCOUNTER → 2021-02-02 10:10 | Outpatient (CLI) | payer OTHER, SELFPAY ==
[2020-07-24 01:38] VITALS: BMI 21.9
[2021-02-02 10:58] LABS: COVID19 -Nasal RAPID Negative (Negative)
== END ==
PROVIDERS: PCP Family Medicine; Visit Provider Physician Assistant
DX: Z20.822 Contact with and (suspected) exposure to COVID-19 (principal)
CPT/HCPCS: 87635; C9803